=== PATIENT | female | born 1970 | race Caucasian/White ===

== ENCOUNTER 2017-04-19 05:20 | Day surgery (SDC) | payer MEDICARE, MEDICAID ==
[2017-04-19] MEDS ORDERED: Glycopyrrolate 0.2 MG/ML 2 ML SDV IVPUSH ONE (06:00)
[2017-04-19] MEDS ORDERED: Dextrose 5%-Lactated Ringers 1,000 ML IV SCH (06:00)
[2017-04-19] MEDS ORDERED: Propofol 200 MG/20 ML SDV ONE (07:19)
[2017-04-19] MEDS ORDERED: Midazolam 1 MG/ML 2 ML SDV ONE (07:20)
[2017-04-19] MEDS ORDERED: fentaNYL 100 MCG/2 ML SDV ONE (07:20)
[2017-04-19 08:35] VITALS: BP 132/76
--- NOTE | 2017-04-26 11:46 | OR ---
DATE OF PROCEDURE: 04/19/2017 PREOPERATIVE DIAGNOSIS: Severe reflux status post reversal of Pallavi-en-Y gastric bypass. POSTOPERATIVE DIAGNOSIS: Severe reflux status post reversal of Pallavi-en-Y gastric bypass associated with a large gastric bezoar consistent with a gastroparesis. OPERATIVE PROCEDURE: Upper GI endoscopy with biopsies of antrum for CLOtest. ANESTHESIA: IV sedation. INDICATION FOR PROCEDURE: This is a 47-year-old status post reversal of Pallavi-en-Y gastric bypass. The patient has developed progressively worsening gastroesophageal reflux symptoms refractory to medical management. Plan is to proceed with upper GI endoscopy today. Potential risks of the procedure including bleeding and perforation were discussed, and the patient wishes to proceed. PROCEDURE IN DETAIL: The patient was taken to the operating room and placed in a left lateral decubitus position. IV sedation was administered, after which the upper GI endoscope was passed orally through the length of the esophagus and into the stomach and from there through the pyloric channel and into the proximal duodenum. Findings included a normal proximal esophagus at the esophagogastric junction, the anastomosis was intact. There was some reddening of the distal esophageal mucosa and along with edema. The striking finding upon entering the stomach was a very large gastric bezoar. 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 There was some redness in the pre-pyloric area likely related to contact with the bezoar. Biopsies were obtained from that area and sent for CLOtest for H. pylori. There was no mechanical obstruction and the pylorus was widely open and the visualized pyloric channel and proximal duodenum were unremarkable. At this point, the scope was withdrawn. The patient was taken to the recovery room in satisfactory condition. We will see the patient back next week regarding management of this. She will likely need to have something like a partial gastrectomy with a Pallavi-en-Y reconstruction, to more or less bypass the area of gastroparesis. With her previous history of malnutrition, following the Pallavi-en-Y gastric bypass, we will leave at least a portion of the stomach in place and perhaps even discuss placing a prophylactic gastrostomy tube; at the time of the placement to maintain perioperative nutrition. the stomach is not emptying well, it would still likely empty satisfactorily with liquid tube feedings. We will see the patient back next week to discuss all these findings and develop a plan. Andrew Soares MD /[id number]
== END 2017-04-19 08:52 | disposition home or self-care (01) ==
LOC: JP.SDS 05:20
PROVIDERS: ATTEND Surgery
DX: K21.9 Gastro-esophageal reflux disease without esophagitis (principal); T18.2XXA Foreign body in stomach, initial encounter; J44.9 Chronic obstructive pulmonary disease, unspecified; F41.9 Anxiety disorder, unspecified; F17.210 Nicotine dependence, cigarettes, uncomplicated; X58.XXXA Exposure to other specified factors, initial encounter; Z98.84 Bariatric surgery status; Z88.8 Allergy status to other drugs, medicaments and biological substances
CPT/HCPCS: 43239; 87081; J2250; J2704; J3010; J7042; J3490